=== PATIENT | male | born 1945 | race Caucasian/White ===

== ENCOUNTER → 2016-10-02 | Outpatient (CLI) | payer OTHER ==
[~2016-10-02] MED LIST: ALLO300 PO; ATOR40TA PO; CLON-352 PO; FENO134C PO; METO50CR PO
--- NOTE | 2016-10-25 10:31 | RSPPFT ---
DATE OF PROCEDURE: 10/02/16 COMMENTS: Spirometry with FVC of 3.6, FEV1 of 2.8, FEV1/FVC ratio at 78%. Slow vital capacity is 75% of predicted. TLC is 89%. Diffusion capacity is normal. Room air arterial blood gases show pH of 7.39, PCO2 of 38, PO2 of 87. IMPRESSION: 1. No evidence of airways obstruction. 2. No evidence of airways restriction. 3. Non-significant response to acutely inhaled bronchodilator. 4. Normal diffusion capacity. 5. Adequate oxygenation and alveolar ventilation.
== END ==
LOC: HRSP 08:47
PROVIDERS: ATTEND Internal Medicine Sleep Medicine
DX: R06.89 Other abnormalities of breathing (principal)
CPT/HCPCS: 94060; 94726; 94729